=== PATIENT | female | born 1985 | race Caucasian/White ===

== ENCOUNTER → 2020-03-19 | Outpatient (CLI) | payer BC ==
[~2020-03-19] MED LIST: BIRTH CONTROL PO; CEFTIN 250250 MG/TAB PO; MONONESSA 35 MC1 TA1 PO; MULTI VITAMINS1 TAB PO; NORCO 325 MG-7.1 TAB PO; ZOFRAN ODT4 MG PO
== END ==
LOC: COL.VAS 13:45
DX: I73.9 Peripheral vascular disease, unspecified (principal)